=== PATIENT | male | born 1990 | race Caucasian/White ===

== ENCOUNTER 2024-08-30 20:05 | Emergency (ER) | payer MEDICAID ==
[~2024-08-30] VITALS: Ht 190.5 cm; Wt 139.7 kg
[2024-08-30 20:24] VITALS: TEMP 97.6
--- NOTE | 2024-08-30 20:36 | ELECTROCARDIOGRAPH REPORT ---
[facility] Test Date: 2024-08-30 Test Time: 20:34:02 Pat Name: YARELI SCHWARTZ Department: EMERGENCY ROOM Room: Gender: M Background Investigator: : 1990 Requested By: TAURUS CABRERA Order Number: [id number] Reading MD: Dr. Ulysses Leiva Measurements Intervals [place] Rate: 81 P: 18 MD: 159 QRS: 51 QRSD: 97 T: 26 QT: 369 QTc: 429 Interpretive Statements Sinus rhythm Consider left atrial enlargement Electronically Signed On 09-06-2024 21:45:[address] Ulysses Leiva Please click the below link to view image of tracing.
[2024-08-30 20:41] LABS: BASOPHILS # (AUTO) 0.1 X10'3 (0-0.2); BASOPHILS % (AUTO) 0.5 % (0-1); EOSINOPHILS # (AUTO) 0.1 X10'3 (0-0.9); EOSINOPHILS % (AUTO) 0.8 % (0-6); HEMATOCRIT 45.4 % (42.0-52.0); HEMOGLOBIN 15.7 g/dl (14.0-17.9); LYMPHOCYTES # (AUTO) 1.2 X10'3 (1.1-4.8); LYMPHOCYTES % (AUTO) 12.2 % (21-51); MEAN CORPUSCULAR HEMOGLOBIN 30.2 PG (27.0-31.0); MEAN CORPUSCULAR HGB CONC 34.6 g/dL (33.0-36.5); MEAN CORPUSCULAR VOLUME 87.2 FL (78-98); MEAN PLATELET VOLUME 8.5 FL (7.4-10.4); MONOCYTES # (AUTO) 0.3 X10'3 (0-0.9); MONOCYTES % (AUTO) 3.2 % (2-12); NEUTROPHILS # (AUTO) 8.2 X10'3 (1.8-7.7); NEUTROPHILS % (AUTO) 83.3 % (42-75); PLATELET COUNT 202 X10'3 (140-440); RED BLOOD COUNT 5.21 X10'6 (4.70-6.10); RED CELL DISTRIBUTION WIDTH 13.7 % (11.5-14.5); WHITE BLOOD COUNT 9.8 X10'3 (4.5-11.0)
[2024-08-30 20:52] LABS: ALANINE AMINOTRANSFERASE 110 U/L (12-78); ALBUMIN 3.5 G/DL (3.4-5.0); ALBUMIN/GLOBULIN RATIO 0.9 (1.1-1.5); ALKALINE PHOSPHATASE 101 IU/L (46-116); ANION GAP 7 (8-16); ASPARTATE AMINO TRANSFERASE 79 U/L (10-37); BILIRUBIN,TOTAL 0.8 MG/DL (0.1-1.0); BLOOD UREA NITROGEN 10 MG/DL (7-18); BUN/CREATININE RATIO 10.8 (10.0-20.0); CALCIUM 9.1 MG/DL (8.5-10.1); CHLORIDE 107 MMOL/L (99-107); CREATININE 0.93 MG/DL (0.60-1.10); GLUCOSE 118 MG/DL (70-104); POTASSIUM 4.2 MMOL/L (3.5-5.1); SODIUM 143 MMOL/L (135-145); TOTAL CARBON DIOXIDE 29.1 MMOL/L (24-32); TOTAL PROTEIN 7.3 G/DL (6.4-8.2); eCRCL 135 ML/MIN; eGFR > 90 ML/MIN
[2024-08-30 21:00] LABS: PRO BRAIN NATRIURETIC PEPTIDE 59 PG/ML (0-125)
--- NOTE | 2024-08-30 22:34 | RADIOLOGY REPORT ---
Clinical History CP Comparison None Technique: frontal chest x-ray Without Contrast SCHWARTZ, YARELI, [id number] Findings: Heart - normal lungs - no consolidation. bones - no acute fracture. Other- Impression: 1. No acute cardiopulmonary disease This report was electronically signed by Viki Burks MD on 08/30/2024 10:30:35 PM.
--- NOTE | 2024-08-31 00:20 | Physician Documentation ---
History of Present Illness ~ Chief Complaint: Vomiting Stated Complaint: HIGH B/P Time Seen by MD: 00:18 HPI Patient presents to the emergency room with nausea and vomiting that began this morning after breakfast. No sick contacts. No diarrhea, no abdominal pain. No unusual foods. Patient does have a history of hypertension but did not take his medication today secondary to his nausea and vomiting Medication Reconciliation Allergies: Coded Allergies: cefaclor (Verified Allergy, Unknown, 08/30/24) Review of Systems ROS All review of systems negative except as per HPI Physical Exam Vital Signs: Temperature: 97.6, Source: Temporal, Heart Rate: 82, Respiratory Rate: 14, BP: 188/122, Pulse Oximetry: 96, Weight: 139.700 Oxygen Flow Rate: 0 Physical Exam General: Patient is awake, alert, oriented x4 in no acute distress and well appearing.~ Head: Normocephalic and atraumatic. Eyes: Conjunctival normal. EOMI. PERRL. ENT: Mucous membranes moist. Neck: Supple, trachea is midline. Chest: Clear to auscultation bilaterally without rales, rhonchi, or wheezes. There is no accessory muscle use or retractions. Cardiac: RRR without murmurs, gallops, or rubs. Abd: Soft, nondistended, nontender, with normoactive bowel sounds. No guarding, rebound, or rigidity. Progress Results/Orders Results/Orders Completed Orders - KEDAR GLALARDO MD Ondansetron Disint. Tablet (Zofran Odt T (08/31/24 00:30) Medications Received in ER Medications (Trade) Dose Ordered Sig/Vaishali Route PRN Reason Start Time Stop Time Status Last Admin Dose Admin (Zofran ODT tablet) 8 mg ONCE ONCE PO 08/31/24 00:30 08/31/24 00:31 DC 08/31/24 00:30 8 MG Vital Signs 08/30/24 08/31/24 08/31/24 08/31/24 20:24 00:13 00:21 01:04 Temp 97.6 Pulse 79 82 76 Resp 15 15 B/P (MAP) 204/118 188/122 (144) 216/133 (160) Pulse Ox 98 96 98 O2 Flow Rate 0 0 Laboratory Tests Test 08/30/24 20:32 08/30/24 22:34 08/30/24 23:20 White Blood Count 9.8 Red Blood Count 5.21 Hemoglobin 15.7 Hematocrit 45.4 Mean Corpuscular Volume 87.2 Mean Corpuscular Hemoglobin 30.2 Mean Corpuscular Hemoglobin Concent 34.6 Red Cell Distribution Width 13.7 Platelet Count 202 Mean Platelet Volume 8.5 Neutrophils (%) (Auto) 83.3 H Lymphocytes (%) (Auto) 12.2 L Monocytes (%) (Auto) 3.2 Eosinophils (%) (Auto) 0.8 Basophils (%) (Auto) 0.5 Neutrophils # (Auto) 8.2 H Lymphocytes # (Auto) 1.2 Monocytes # (Auto) 0.3 Eosinophils # (Auto) 0.1 Basophils # (Auto) 0.1 CBC Comment Sodium Level 143 Potassium Level 4.2 Chloride Level 107 Carbon Dioxide Level 29.1 Anion Gap 7 L Blood Urea Nitrogen 10 Creatinine 0.93 Estimated GFR/1.73 m2 > 90 BUN/Creatinine Ratio 10.8 Glucose Level 118 H Calcium Level 9.1 Total Bilirubin 0.8 Aspartate Amino Transf (AST/SGOT) 79 H Alanine Aminotransferase (ALT/SGPT) 110 H Alkaline Phosphatase 101 Troponin I High Sensitivity 13 12 13 Pro-B-Type Natriuretic Peptide 59 Total Protein 7.3 Albumin 3.5 Globulin 3.8 Albumin/Globulin Ratio 0.9 L Chemistry Comments Troponin I High Sens Percent Delta 7 8 Troponin I Hi Sens Absolute Change -1 1 EKG/XRAY/CT/US/VASC/MRI EKG : Additional Comment EKG interpreted by myself shows time of 2033, rate 81, sinus rhythm, normal axis, no ST changes Medical Decision Making Findings Patient has tolerated p.o. challenge. Patient presented to the emergency room vomiting. Differentials include but are not limited to ACS viral syndrome food poisoning electrolyte disturbances therefore labs ordered which were reassuring for no major pathologic derangements. No abdominal tenderness to palpation he had not feel patient requires a CT scan. He is responding to Zofran administration and tolerating p.o.. We will prescribe him some Zofran with ER precautions discussed. Departure Disposition: HOME / SELF CARE / HOMELESS Impression: Primary Impression: Vomiting Condition: Improved Discharge Instructions: Nausea and Vomiting, Adult Referrals: NO PRIMARY CARE PROVIDER (PCP) Prescriptions Ondansetron 8mg ODT (Ondansetron Odt) 8 Mg Tab.rapdis 1 TAB PO Q6H for nausea/vomiting for 3 Days, #12 TAB 0 Refills Prov: KEDAR GALLARDO MD 08/31/24 Education Educated: Patient Educated regarding: diagnosis, treatment, need for follow up Signature Scribe Signature: No scribe Attestation: The note accurately reflects work and decisions made by me.Kedar Gallardo MD 08/31/24 01:50 KEDAR GALLARDO MD August 31, 2024 00:20
[2024-08-31] MEDS: ondansetron 4mg rapidly disintigrating tab PO ONE (00:30)
[2024-08-31] MEDS ORDERED: ONDA-245 PO (01:50)
[2024-08-31] MEDS: amLODIPine 5mg tablet PO ONE (02:15)
[2024-08-31 02:34] VITALS: PULSE 80; RESP 17; O2SAT 99
[2024-08-31 02:58] VITALS: BP 182/115
== END 2024-08-31 03:02 | disposition home or self-care (01) ==
LOC: ER 20:07
DX: R11.2 Nausea with vomiting, unspecified (principal); I10 Essential (primary) hypertension; Z88.1 Allergy status to other antibiotic agents
CPT/HCPCS: 36415; 71045; 80053; 83880; 84484; 85025; 93005; 99285